=== PATIENT | female | born 1945 | race Caucasian/White ===

== ENCOUNTER 2019-01-17 11:59 | Inpatient (IN) | payer MEDICARE ==
[~2019-01-17] VITALS: Ht 160 cm; Wt 49.9 kg
--- NOTE | 2019-01-17 16:17 | NUR ---
TRANSFERED BY EMS VIA STRETCHER. OREINTED TO ROOM. CALL LIGHT IN REACH. WILL CONT. PLAN OF CARE.
[2019-01-17] MEDS ORDERED: ZOLOFT25 MG PO (16:32)
[2019-01-17] MEDS ORDERED: DOLOPHINE HCL5 MG PO (16:33)
[2019-01-17] MEDS ORDERED: CISPLATIN IV (16:37)
[2019-01-17] MEDS ORDERED: GENTIAN VIOLET PO (16:38)
[2019-01-17] MEDS ORDERED: ROBITUSSIN DM 110 ML PO (16:39)
[2019-01-17] MEDS ORDERED: OXYCODONE HCL E20 MG PO (16:40)
[2019-01-17] MEDS ORDERED: ZOFRAN4 MG PO (16:41)
[2019-01-17] MEDS ORDERED: ZYRTEC10 MG PO (16:41)
[2019-01-17] MEDS ORDERED: EMLA CREAM 30 G30 G1 TOPICAL (16:41)
[2019-01-17] MEDS ORDERED: POTASSIUM20 MEQ/11 PO (16:42)
[2019-01-17 16:49] VITALS: BP 130/72; BMI 19.5
[2019-01-17 17:41] LABS: ALBUMIN 2.5 g/dL (3.4-5.0); ANION GAP 12.5 mmol/L (8-16); BILIRUBIN - TOTAL 0.42 mg/dL (0.2-1.3); CALCIUM 7.8 mg/dL (8.5-10.1); CARBON DIOXIDE 31.8 mmol/L (21.0-32.0); CREATININE - SERUM 3.5 mg/dL (0.6-1.3); POTASSIUM - SERUM 3.3 mmol/L (3.5-5.1); PROTEIN - SERUM 5.5 g/dL (6.4-8.2)
--- NOTE | 2019-01-17 19:30 | NUR ---
PT ASLEEP. AROUSES TO VERBAL STIMULI. FAMILY AT BEDSIDE, MAGALIE [phone] PT FAMILY GAVE PATIENT NUTREN 1.5 100ML OF IT. STATES THAT PT CAN ONLY TOLERATE A SMALL AMOUNT AT A TIME. BEDLOW AND CALL LIGHT IN REACH. NAME AND DATE PLACED ON BOARD. WILL CPOC
[2019-01-17 20:00] VITALS: BP 119/70; BP 133/55
--- NOTE | 2019-01-17 20:45 | NUR ---
METHADONE GIVEN ORDERED THROUGH PEG TUBE, FLUSHED WITH 30ML.
[2019-01-17 22:31] LABS: HEMATOCRIT 20.8 % (36.0-48.0); MCH 31.3 pg (26.0-34.0); MCHC 34.1 g/dL (31.0-37.0); MCV 91.6 fL (80.0-100.0); MEAN PLATELET VOLUME 9.1 fL (7.4-10.4); PLATELET COUNT 89 10x3/uL (130-400); RBC 2.27 10x6/uL (4.00-5.40); RDW 16.7 % (11.5-14.5)
[2019-01-17 22:44] LABS: HEMOGLOBIN 7.1 g/dL (12-16)
[2019-01-17 23:23] LABS: EOSINOPHILS 2 % (0-7); LYMPHOCYTES 9 % (15-50); MONOCYTES 5 % (2-11); NEUTROPHILS 84 % (40-80)
[2019-01-17 23:24] LABS: PLATELET ESTIMATE DECREASED
[2019-01-18 00:30] VITALS: BP 116/60; BP 133/75
--- NOTE | 2019-01-18 00:42 | NUR ---
PT UP TO RESTROOM. URINATED 700CC OF YELLOW URINE. PT BACK TO BED. ASSISTED WITH REPOSITIONING. PT HAS FAMILY AT BEDSIDE. NS INFUSING AT 100, PT BEDLOW AND CALL LIGHT IN REACH. KANGAROO PUMP NOT HOOKED UP YET AT THIS TIME. SON STATED HE WILL HANDLE FEEDINGS AT THIS TIME. WILL CPOC
[2019-01-18 04:30] VITALS: BP 137/84
--- NOTE | 2019-01-18 05:37 | NUR ---
UNSUCCESSFUL LINE DRAW. BLOOD CLOTTING IN SYRINGE. ATTEMPTED 2 TIMES. COULD ONLY GET LESS THAN 4ML OUT AT A TIME
--- NOTE | 2019-01-18 05:38 | NUR ---
PT SITTING UP IN BED. STATES SHE HAS NOT WENT BACK TO SLEEP SINCE NURSE IN ROOM FOR MEDICATION. PT FELL ASLEEP WHEN LEANING BACK FOR LINE DRAW. PT SET BACK UP AFTER NURSE WAS UNSUCCESSFUL. PT HAS NO S/S OF DISTRESS. BEDLOW AND CALL LIGHT IN REACH. WILL CPOC
[2019-01-18 08:33] VITALS: BP 142/75
[2019-01-18 11:48] VITALS: BP 138/64
[2019-01-18 12:38] LABS: BASOPHILS 0 % (0-2); EOSINOPHILS 0.3 % (0-7); HEMATOCRIT 22.9 % (36.0-48.0); HEMOGLOBIN 7.8 g/dL (12-16); LYMPHOCYTES 6.6 % (15-50); MCH 31.3 pg (26.0-34.0); MCHC 34.1 g/dL (31.0-37.0); MEAN PLATELET VOLUME 9.3 fL (7.4-10.4); NEUTROPHILS 89.1 % (40-80); PLATELET COUNT 88 10x3/uL (130-400); RBC 2.49 10x6/uL (4.00-5.40); RDW 16.5 % (11.5-14.5); WBC 3.5 10x3/uL (4.8-10.8)
[2019-01-18 12:55] VITALS: Ht 160 cm; Wt 49.9 kg
[2019-01-18 13:01] LABS: % SATURATION 40 % (15-55); IRON 84 ug/dl (35-150); TOTAL IRON BIND CAPACITY 208 ug/dl (260-445); UNSAT IRON BIND CAPACITY 124 ug/dl (150-375)
[2019-01-18 13:20] LABS: ALBUMIN 2.6 g/dL (3.4-5.0); ANION GAP 10.4 mmol/L (8-16); BILIRUBIN - TOTAL 0.55 mg/dL (0.2-1.3); CALCIUM 8.5 mg/dL (8.5-10.1); CARBON DIOXIDE 31.5 mmol/L (21.0-32.0); CREATININE - SERUM 3.4 mg/dL (0.6-1.3); PROTEIN - SERUM 6.1 g/dL (6.4-8.2)
[2019-01-18 13:23] LABS: POTASSIUM - SERUM 2.9 mmol/L (3.5-5.1)
[2019-01-18 15:52] VITALS: BP 126/66
[2019-01-18 16:46] LABS: CREATININE - URINE 13.7 mg/dL (30-125); PROTEIN - URINE 61.1 mg/dL (0.0-11.9)
[2019-01-18 16:51] LABS: APPEARANCE CLEAR (CLEAR); BILIRUBIN NEGATIVE (NEGATIVE); COLOR STRAW (YELLOW); GLUCOSE NEGATIVE (NEGATIVE); KETONE NEGATIVE (NEGATIVE); NITRITE NEGATIVE (NEGATIVE); PROTEIN 1+ mg/dL (NEGATIVE); SPECIFIC GRAVITY 1.005 (1.005-1.020); UROBILINOGEN NORMAL (NORMAL)
[2019-01-18 16:52] LABS: BACTERIA FEW /hpf (NONE SEEN); RED CELLS - URINE 0-5 /hpf (0-5); WHITE CELLS - URINE 0-5 /hpf (0-5)
--- NOTE | 2019-01-18 19:10 | NUR ---
PT RESTING IN BED. SON AT BEDSIDE. PT IS AAO, SITTING UP IN BED. DENIES ANY NEEDS AT THIS TIME. NAME AND DATE PLACED ON BOARD. NO S/S OF DISTRESS. WILL CPOC
[2019-01-18 20:00] VITALS: BP 119/65
--- NOTE | 2019-01-18 20:14 | NUR ---
SECOND UNIT OF BLOOD STARTED VITALS. 98.4 TEMP HR 93 BP IS 131/59 PT IS AAO, UP WITH MINIMAL/STAND BY ASSIST. NIGHT MEDICATIONS GIVEN. PT HAS NO S/S OF DISTRESS. WILL CPOC
--- NOTE | 2019-01-18 20:21 | NUR ---
PT DOES NOT WANT METHADONE AT THIS TIME. WANTS OXY FIRST THAN THE METHADONE IN AN HOUR.
--- NOTE | 2019-01-18 20:27 | NUR ---
15 MINS POST START OF 2ND UNIT PRBC. PT IS AAO, NO CHANGE. DENIES ANY S/S OF DISTRESS. NO S/S OF REACTION. BP IS 130/68 PULSE 83 TEMP IS 98.9 PT HAS NOURISHMENT AT BEDSIDE. DENIES ANY NEEDS. WILL CPOC
--- NOTE | 2019-01-18 23:28 | NUR ---
2ND UNIT OF PRBC COMPLETE. YANDEL FROM DAY [facility] STATED DOCTOR WANTED 2 UNITS FOR PT. THOSE 2 UNITS COMPLETE. FLUSHING LINE AT 100ML/HR EMPTIED RODRIGUEZ YELLOW URINE. 900+500 WILL DOCUMENT IN OUTPUT. PT HS NO S/S OF DISTRESS. HAVE CALLED [facility] REGARDING TUBE FEEDINGS. WILL START ONCE PUMP ARRIVES
--- NOTE | 2019-01-18 23:52 | NUR ---
ATROPINE DROPS GIVEN. OXY PRN PAIN MEDICATION GIVEN. PT FEEDING STARTED AT 10ML RESIDUAL IS LESS THAN 2ML PT HAS FAMILY AT BEDSIDE. WILL CPOC
--- NOTE | 2019-01-19 00:54 | NUR ---
RODRIGUEZ PLACED FOR STRICT I'S AND O'S PER DOCTOR. DO NOT REMOVE WITH OUT DR ORDER OR PT REFUSAL.
[2019-01-19 05:00] VITALS: BP 114/59
[2019-01-19 06:29] LABS: BASOPHILS 0 % (0-2); EOSINOPHILS 0.2 % (0-7); IMMATURE GRANULOCYTES 0.2 % (0-5); LYMPHOCYTES 6.9 % (15-50); MCH 30.1 pg (26.0-34.0); MCHC 34.3 g/dL (31.0-37.0); MEAN PLATELET VOLUME 9.4 fL (7.4-10.4); MONOCYTES 5.7 % (2-11); PLATELET COUNT 78 10x3/uL (130-400); RDW 16.8 % (11.5-14.5); WBC 4.1 10x3/uL (4.8-10.8)
[2019-01-19 06:53] LABS: HEMOGLOBIN 10.3 g/dL (12-16); MCV 87.7 fL (80.0-100.0); RBC 3.42 10x6/uL (4.00-5.40)
--- NOTE | 2019-01-19 07:07 | NUR ---
RESIDUAL LESS THAN 2 ML INCREASED FEEDING TO 20ML PER HOUR. ASSISTED PT WITH GETTING DRESSED. 1100 EMPTIED FROM RODRIGUEZ CLEAR YELLOW. CLEARED IV PUMP. PT ASKING FOR PAIN MEDICATION. OXY GIVEN ORDERED THROUGH PEG TUBE. PT GIVEN ATROPINE DROPS. PT WILL CALL FOR ASSIST WHEN NEEDED. WILL CPOC
--- NOTE | 2019-01-19 07:30 | NUR ---
REPORT RECEIVED. WILL CONTINUE WITH POC. PT CURRENTLY SITTING UP IN THE CHAIR. CALL LIGHT W/I REACH. FAMILY AT BEDSIDE. RR EVEN AND UNLABORED ON RA. NS INFUSING @100ML/HR VIA L.INFUSAPORT. NEPRO INFUSING @20ML/HR VIA PEG TUBE. PT DENIES ANY NEEDS AT THIS TIME. NO S/S OF DISTRESS NOTED. WILL CTM.
[2019-01-19 08:45] LABS: PLATELET ESTIMATE DECREASED
[2019-01-19 09:10] VITALS: BP 152/72
[2019-01-19 11:14] LABS: FOLATE (FOLIC ACID) - SERUM >20.0 ng/mL (>3.0)
--- NOTE | 2019-01-19 12:40 | HP ---
PATIENT: LEANN RANDALL MEDICAL RECORD: [id number] ACCOUNT: [id number] LOCATION:[facility] D.2129 : 45 ADMISSION DATE: 01/17/19 PCP: ASRAI STYLES MD HISTORY AND PHYSICAL EXAMINATION RENAL ADMIT HISTORY: This is a patient of 73 years old that was followed by Dr. Coy on consultation at [facility] and also followed by Dr. Coelho, who was admitted with nausea, vomiting, diarrhea, acute kidney injury, and 2 doses of chemotherapy. She is being transferred for more advanced care. REVIEW OF SYSTEMS: Mostly per her son upon his arrival today during the dictation. I was not able to get much of review of systems from Mrs. Randall herself. All review of systems were unobtainable. PAST MEDICAL HISTORY: I reviewed her chart with; 1. Chronic pain syndrome, on methadone and oxycodone. 2. Depression. 3. Allergic rhinitis. 4. Head and neck cancer, recurrent. 5. Pancytopenia. 6. Malignant cachexia. 7. Protein-calorie malnutrition. SOCIAL HISTORY: Unable to obtain tobacco or alcohol, but is on significant pain medication related to her chronic illness and malignancy. LABORATORY DATA: Lab has been reviewed. Potassium was 3.3, BUN 39, and creatinine 3.5. AST and ALT were normal. Albumin was 2.5. Sodium 138. White count 3000, hemoglobin 7.1 with hematocrit of 20.0, and platelet count of 89,000. MEDICATIONS: Ana, Zoloft, atropine, normal saline, methadone, Zofran, and oxycodone. PHYSICAL EXAMINATION: VITAL SIGNS: Blood pressure 130/72, 86 pulse, temperature 97.5. GENERAL: Cachectic, thin, and emaciated white female with no distress. HEENT: Pupils are reactive to right, normocephalic with dry mucosa. Erythema and scarring due to radiation in the neck area. CHEST: Regular rhythm without a rub. LUNGS: Coarse. Port catheter is in place. It is unable to draw, but he is able to flush. ABDOMEN: Soft with PEG tube in place. EXTREMITIES: No edema. Not able to stand, but no swelling of her joints. ASSESSMENT: 1. Acute kidney injury. She had cisplatin therapy. Dr. Coy has been following this nice lady. 2. Pancytopenia, had been followed by Dr. Coelho. 3. Head and neck cancer, also had been followed by Dr. Coelho. 4. Protein-calorie malnutrition. 5. PEG and port placement with severe deconditioning. 6. Social issue. Her son is not letting the nurses or us draw lab work. He is HISTORY AND PHYSICAL [id number] LEANN RANDALL indicating that he would like to donate blood and we could just give her his blood. With disconnect between appropriate medical care and her overall condition, her prognosis is extremely poor even with the best of circumstances and we are certainly trying to rescue her kidneys at this time and having to do so with incomplete medical knowledge based on family members' decisions. PLAN: 1. We will do what we are allowed. 2. Prognosis is extremely poor and she is still a full code. 3. Not a candidate for chemotherapy at this time. 4. Do agree with palliative care. 5. Dr. Coy would address her nutritional needs with her PEG tube. 6. Likely we will consult primary care hospitalist for help as well. TRANSINT:[id number] Voice Confirmation ID: [id number] DOCUMENT ID: [id number] SARAI STYLES MD at 1240 CC: [id number] DICTATION DATE: 01/18/19 1258 ABRASIVE WATER JET CUTTER OPERATOR: 01/18/19 1425 ADM IN [facility] [address] [id number]
[2019-01-19 13:19] LABS: BASOPHILS 0.2 % (0-2); EOSINOPHILS 0 % (0-7); HEMOGLOBIN 10.5 g/dL (12-16); IMMATURE GRANULOCYTES 0.2 % (0-5); LYMPHOCYTES 8.3 % (15-50); MCH 30.7 pg (26.0-34.0); MCV 87.7 fL (80.0-100.0); MEAN PLATELET VOLUME 9.4 fL (7.4-10.4); MONOCYTES 4.6 % (2-11); NEUTROPHILS 86.7 % (40-80); PLATELET COUNT 77 10x3/uL (130-400); RBC 3.42 10x6/uL (4.00-5.40); RDW 16.8 % (11.5-14.5); WBC 4.1 10x3/uL (4.8-10.8)
[2019-01-19 13:24] VITALS: BP 135/64
[2019-01-19 13:26] LABS: ANION GAP 10.2 mmol/L (8-16); CALCIUM 8.2 mg/dL (8.5-10.1); CARBON DIOXIDE 31.6 mmol/L (21.0-32.0); CREATININE - SERUM 3.4 mg/dL (0.6-1.3)
[2019-01-19 13:37] LABS: POTASSIUM - SERUM 2.8 mmol/L (3.5-5.1)
--- NOTE | 2019-01-19 13:56 | NUR ---
Nutren started last night at 10mL/hour Advancing as tolerated to goal rate of 40mL/hour Current rate 30mL/hour Spoke with pt and son about tube feeding and they have no questions at this time RD following
[2019-01-19 17:05] VITALS: BP 152/73
--- NOTE | 2019-01-19 17:57 | NUR ---
I have reviewed this patient and I concur with the Shift Assessment completed by the Licensed Practical Nurse today this shift.
--- NOTE | 2019-01-19 19:20 | NUR ---
PT RESTING IN BED. SON AT BEDSIDE. PT HAS NS INFUSING AT 50 TO LEFT CHEST IP. FEEDING INFUSING AT 30, RESIDUAL LESS THAN 5ML. PT UP WITH MINIMAL ASSIST. WILL CALL FOR ASSIST WHEN NEEDED. RODRIGUEZ NOTED WITH YELLOW URINE. NOURISHMENT PROVIDED. NAME AND DATE PLACED ON BOARD. WILL CPOC
[2019-01-19 20:00] VITALS: BP 154/70
--- NOTE | 2019-01-19 20:20 | NUR ---
NIGHT MEDS GIVEN. NOURISHMENT OFFERED. PT WILL CALL FOR ASSIST WHEN NEEDED. CHANGED KANGAROO PUMP FEEDING. WILL CPOC
--- NOTE | 2019-01-19 21:30 | NUR ---
PT UP TO WALK AROUND. SON AT SIDE FOR ASSIST. PT HAS STEADY GAIT. WALKED AROUND FLOOR ONE TIME. NURSE CHANGED BED WHILE PT AMBULATING. PT WILL CALL FOR ASSIST. WILL CPOC
[2019-01-20] VITALS: BP 158/72
--- NOTE | 2019-01-20 00:55 | NUR ---
OXY GIVEN FOR PAIN. RESIDUAL LESS THAN 2ML PT STATES SHE FEELS FULL AND STATES SHE IS NOT ABLE TO LAY DOWN, ASKED TO BE UNHOOK FOR THE NIGHT AND WILL RESUME IN THE MORNING. NURSE AGREED. PT WILL CALL FOR ASSIST WHEN NEEDED. WILL CPOC
--- NOTE | 2019-01-20 01:09 | NUR ---
PT HAD 2 TREATMENTS FOR LOW POTASSIUM DURING THE DAY. TREATED WITH 20 MEQ THROUGH PEG. PT WANTS TO WAIT UNTIL MORNING LAB DRAW FOR RECHECK.
[2019-01-20 05:40] LABS: BASOPHILS 0.3 % (0-2); EOSINOPHILS 0.3 % (0-7); HEMATOCRIT 31.1 % (36.0-48.0); HEMOGLOBIN 10.7 g/dL (12-16); LYMPHOCYTES 8.2 % (15-50); MCH 30.4 pg (26.0-34.0); MCHC 34.4 g/dL (31.0-37.0); MCV 88.4 fL (80.0-100.0); MEAN PLATELET VOLUME 9.7 fL (7.4-10.4); MONOCYTES 5.1 % (2-11); NEUTROPHILS 86.1 % (40-80); PLATELET COUNT 83 10x3/uL (130-400); RBC 3.52 10x6/uL (4.00-5.40); RDW 16.6 % (11.5-14.5); WBC 3.3 10x3/uL (4.8-10.8)
[2019-01-20 06:04] LABS: CALCIUM 8.5 mg/dL (8.5-10.1); CARBON DIOXIDE 28.9 mmol/L (21.0-32.0); CREATININE - SERUM 3.2 mg/dL (0.6-1.3)
[2019-01-20 06:22] VITALS: BP 160/75
[2019-01-20 06:26] LABS: POTASSIUM - SERUM 2.9 mmol/L (3.5-5.1)
--- NOTE | 2019-01-20 07:00 | NUR ---
RECEIVED REPORT. ASSUMED CARE OF PATIENT. AWAKE AND ALERT. PATIENT SON AT BEDSIDE. DOES NOT SEEM HAPPY THIS MORNING, MAKING HUFFING SOUNDS IF HE IS WAITING FOR SOMETHING OR WE ARE HOLDING HIM UP THIS MORNING. PATIENT IS VERY PLEASANT. RENAL NECKTIES PAINTER ROUNDS COMPLETE AND DISCHARGING PATIENT TO HOME THIS AM. NO DISTRESS.
[2019-01-20] MEDS ORDERED: POTASSIUM20 MEQ/11 PO (07:03)
--- NOTE | 2019-01-20 08:22 | NUR ---
RODRIGUEZ CATHETER D/C'D WITHOUT DIFFICULTY. INSTRUCTED PATIENT THE NEED TO URINATE BY 1430 TODAY AND SHE STATED THAT IF SHE DOESN'T SHE KNOWS TO CALL SOMEONE. LEFT CHEST PORT DEACCESSED AT THIS TIME. HUBBER NEEDLE REMOVED. 2X2 GAUZE APPLIED AND SECURED WITH CLEAR TEGADERM. DARWIN DOING PATIENTS DISCHARGE AND CAME TO VERIFY PATIENTS PHARMACY. PATIENT SITTING TO CHAIR AT BEDSIDE. PATIENT GAVE COMPLIMENTS ON HOW NICE THE HOSPITAL IS. THIS GROOVING LATHE TENDER THANKED PATIENT. NO DISTRESS. AWAITINGIN DISCHARGE PAPERWORK.
--- NOTE | 2019-01-20 08:35 | NUR ---
DISCHARGE INSTRUCTIONS PROVIDED TO PATIENT. PATIENT VERBALIZED UNDERSTANDING OF ALL INSTRUCTIONS PROVIDED. PATIENT DISCHARGING TO HOME.
--- NOTE | 2019-01-20 08:43 | NUR ---
PATIENT LEFT UNIT VIA WHEELCHAIR WITH ALL PERSONAL BELONGINGS. PATIENTS SON NOT IN ROOM AND PATIENT TEXTED HIM TO LET HIM KNOW THAT SHE WAS ON HER WAY DOWNSTAIRS IN A WHEELCHAIR. PATIENT IN NO ACUTE DISTRESS UPON LEAVING UNIT. PATIENT THANKED THIS SURGICAL SUPPLIES STERILIZER FOR GETTING HER OUT SO QUICKLY THIS AM.
--- NOTE | 2019-01-20 08:50 | NUR ---
PATIENT WAS DISCHARGED TO HOME. WHILE PATIENT WAS TAKEN DOWNSTAIRS IN A WHEELCHAIR, PATIENTS S[facility] THAT HE DIDN'T KNOW THAT PATIENT WAS BEING DISCHARGED, THAT WE HAD GIVEN HER USED PERSONAL BELONGINGS BAG. PATIENT WAS STANDING IN ROOM WHEN OFFICE DIRECTOR STATED SHE WOULD DISCHARGE PATIENT TO HOME AND WHEN THIS DISTRIBUTION SPEC WENT IN ROOM AND INFORMED PATIENT THAT SHE HAD DISCHARGE ORDERS AND WE WOULD GET HER OUT AND HOME WITHIN THE NEXT FEW MINUTES. SIMPLEX PRINTER INSTALLER REPORTS THAT PATIENTS SON WAS HOLLORING AT PATIENT THEY LEFT FROM THE FRONT ENTRANCE OF THE HOSPITAL AND THAT PATIENTS SON WAS SPEEDING THROUGHT THE PARKING LOT.
[2019-01-20 09:08] VITALS: BP 168/87
--- NOTE | 2019-01-22 08:52 | MORECARE ---
CASE MANAGEMENT DISCHARGE SUMMARY PATIENT: LEANN RANDALL S UNIT: [id number] ADM DATE: 01/17/19 AGE: 73 : 45 SEX: F ROOM/BED: D.2372 AUTHOR: JOLLY MARCUM PHYSICIAN: REFERRING PHYSICIAN: QUIRINO ALMEIDA MD DATE OF SERVICE: 01/22/19 Discharge Plan Patient Name: LEANN RANDALL Facility: [facility]:[place] : 1945 Planned Disposition: Home Anticipated Discharge Date: 01/20/19 Discharge Date: 01/20/2019 Expected LOS: 3 Initial Reviewer: [email or web address] Initial Review Date: 01/22/2019 Generated: 01/22/19 9:52 am Patient Name: LEANN RANDALL Page [phone] at 0852 All edits/amendments must be made on the electronic document DICTATION DATE: 01/22/19851 BICYCLE I ASSEMBLER: ANYA 01/22/19 0852 RPT#: [id number] DC DATE:01/20/19 STATUS: DIS IN [facility] [address] [place] [address] END OF REPORT
== END 2019-01-20 08:50 | disposition home or self-care (01) | DRG 682 ==
LOC: D.M2 11:59
PROVIDERS: Internal Medicine Nephrology; ADMIT Internal Medicine Nephrology; ATTEND Internal Medicine Nephrology
DX: N17.9 Acute kidney failure, unspecified (principal); E43 Unspecified severe protein-calorie malnutrition; D61.818 Other pancytopenia; Z68.1 Body mass index [BMI] 19.9 or less, adult; C76.0 Malignant neoplasm of head, face and neck; D64.9 Anemia, unspecified